=== PATIENT | female | born 1995 ===

== ENCOUNTER 2016-10-02 14:04 | Outpatient (CLI) | payer SELFPAY ==
--- NOTE | 2016-10-05 07:51 | HP ---
ADMIT: 10/02/2016 RM/LOC: [address] [facility] MR#: [id number] [facility] [address], [place] [id number] [place] / /[place] [id number] History and Physical SEX: F AGE: 20 : 1995 DATE OF SERVICE: 10/02/2016 CHIEF COMPLAINT: Contractions and diarrhea at 30 weeks' gestation. HISTORY OF PRESENT ILLNESS: This is a 20-year-old, 2, para 1, who [facility] complaining that she had had diarrhea for about 12 hours and was having some contractions. She moved to [place] from [place] about 2 weeks ago. She has an appointment to transfer care to Dr. Rodriguez in [place] and that appointment is about 2 weeks from now, she states. The patient said she had some diarrhea yesterday that was mild but woke up this morning about 2:00 a.m. with pretty severe watery diarrhea and vomited once. She then started feeling like she was having contractions. She continued to have diarrhea even though she was trying to push fluids. She came in and was jazmin about every 2 minutes. heart tones were reactive. She was afebrile, not tachycardic. Vital signs are normal. We started IV fluid, and once the patient was able to urinate, checked urinalysis. There was no evidence of infection. She had 2+ ketones on the urine, 1+ leukocyte esterase, trace protein, and was otherwise negative. The patient had 2 L of fluid total and contractions have nearly completely resolved. She has occasional irritability. She feels good activity. PHYSICAL EXAMINATION: The external genitalia are normal. Abdomen is gravid consistent with dates. Cervix was visualized with sterile speculum and is closed on appearance. There is a little bit of white mucus in the vaginal vault. LABORATORY DATA: A fibronectin test was obtained. I also obtained cervix culture for GC and chlamydia. Next, a vaginal rectal swab was obtained for group B strep. Finally, I did a sterile vaginal digital exam and noted that patient has soft external os but it is closed. Cervix is long, thick, and presenting part is high. I cannot feel the presenting part actually. ASSESSMENT: 1. Thirty weeks' gestation with contractions. 2. Dehydration secondary to gastroenteritis. ADMIT: 10/02/2016 RM/LOC: [address] [facility] MR#: [id number] [facility] [address], [place] [id number] [place] M / /, [place] [id number] History and Physical SEX: F AGE: 20 : 1995 PLAN: We have given her 2 L of hydration and she feels much, much better. She said she does not feel contractions anymore. Baby is active. At this point, she will be dismissed to home and follow up with her own physician as planned in about 2 weeks. She needs to continue to push fluids. If she has recurrent contractions or severe diarrhea, she should call Dr. Rodriguez or return to the hospital either [facility] or here. She said she understands Dr. Rodriguez practices from [facility] in [place]. I did not give her any medication other than one dose of brethine along with her 2 L of fluid. She will not be dismissed on any medicines other than her vitamin. Sanjuanita Arriola MD/ leny JOB #: [id number] CC: Sanjuanita Arriola MD, Attending Physician Sanjuanita Arriola MD, Family Physician Ayleen Rodriguez MD
== END 2016-10-02 18:28 | disposition home or self-care (01) ==
LOC: 2LDRP 14:04 → BC 14:04 → 2LDRP 18:28 → BC 18:28
DX: O60.03 Preterm labor without delivery, third trimester (principal); O99.613 Diseases of the digestive system complicating pregnancy, third trimester; K52.9 Noninfective gastroenteritis and colitis, unspecified; O99.89 Other specified diseases and conditions complicating pregnancy, childbirth and the puerperium; E86.0 Dehydration; Z3A.30 30 weeks gestation of pregnancy